=== PATIENT | female | born 1955 | race Two or more races ===

== ENCOUNTER 2021-11-16 18:46 | Emergency (ER) | payer OTHER ==
[~2021-11-16] VITALS: Ht 160 cm; Wt 52.6 kg
--- NOTE | 2021-11-16 18:46 | NUR ---
PT [facility] 86 FROM HOME C/O BEHAVIORAL "SHE'S BEEN SCREAMING AND BINGE DRINKING FOR 3 MONTHS, UNABLE TO TAKE CARE OF HERSELF" PT IS AAOX3, NOT IN RESPIRATORY DISTRESS, HOOKED TO V/S MONITOR, KEPT RESTED AND COMFORTABLE. WILL CONTINUE TO MONITOR.
[2021-11-16 20:14] LABS: BASOPHILS # (AUTO) 0.1 K/uL (0.0-0.2); BASOPHILS % (AUTO) 0.8 % (0.0-2.0); EOSINOPHILS % (AUTO) 6.4 % (0.0-6.0); HEMATOCRIT 39 % (33-45); HEMOGLOBIN 13.3 g/dL (11.5-14.8); LYMPHOCYTES # (AUTO) 2.2 K/uL (0.8-4.8); LYMPHOCYTES % (AUTO) 21.6 % (20.0-44.0); MEAN CORPUSCULAR HGB CONC 34 g/dl (31.0-36.0); MEAN CORPUSCULAR VOLUME 87 fL (82-100); MONOCYTES # (AUTO) 0.4 K/uL (0.1-1.30); MONOCYTES % (AUTO) 3.7 % (2.0-12.0); NEUTROPHILS # (AUTO) 6.9 K/uL (1.8-8.9); NEUTROPHILS % (AUTO) 67.5 % (43.0-81.0); PLATELET COUNT (AUTO) 342 K/uL (150-450); RED BLOOD CELL COUNT(AUTO) 4.42 MIL/uL (4.0-5.2); WHITE BLOOD COUNT (AUTO) 10.3 K/uL (4.3-11.0)
[2021-11-16 20:57] LABS: CALCIUM, SERUM 8.6 mg/dL (8.5-10.1); CREATININE 0.8 mg/dL (0.6-1.3); POTASSIUM 4.1 mmol/L (3.5-5.1)
[2021-11-16 21:08] LABS: ALBUMIN 3.9 g/dL (3.4-5.0); BILIRUBIN,DIRECT 0.1 mg/dL (0.0-0.2); BILIRUBIN,TOTAL 0.3 mg/dL (0.2-1.0); TOTAL PROTEIN, SERUM 7.3 g/dL (6.4-8.2)
[2021-11-16 22:55] LABS: BILIRUBIN,URINE NEGATIVE (NEGATIVE); COLOR,URINE YELLOW (YELLOW); LEUKOCYTE ESTERASE ,URINE NEGATIVE (NEGATIVE); NITRITE, URINE NEGATIVE (NEGATIVE); PROTEIN,URINE NEGATIVE (NEGATIVE); UGLUCOSE NEGATIVE (NEGATIVE); UROBILINOGEN,URINE 0.2 EU/dL (0.2)
--- NOTE | 2021-11-17 01:09 | NUR ---
[facility] will be coming to evaluate pt
--- NOTE | 2021-11-17 02:37 | NUR ---
Patient evaluated by flamer after lasting and discharged to home in stable condition. Written and verbal after care instructions given. Patient verbalizes understanding of instruction. PT ambulatory with steady gait and V/S stable at time of discharge.
[2021-11-17 02:39] VITALS: BP 119/86
== END 2021-11-17 02:39 | disposition home or self-care (01) ==
LOC: ER 18:59
DX: F10.129 Alcohol abuse with intoxication, unspecified (principal); R41.82 Altered mental status, unspecified; Y90.8 Blood alcohol level of 240 mg/100 ml or more
CPT/HCPCS: 36415; 70450-TC; 71045-TC; 80048-TC; 80076-TC; 85025-TC; G0480